=== PATIENT | male | born 1970 | race Caucasian/White ===

== ENCOUNTER 2021-02-06 12:37 | Inpatient (IN) | payer BC ==
[~2021-02-06] VITALS: Ht 180.3 cm; Wt 162.8 kg
[~2021-02-06 12:37] MED LIST: ASPIRIN 325MG325 MG PO; DILTIAZEM 24HR240 M1 PO; GLUCOPHAGE 500500 MG PO; HUMALOG 10100 UNITS/ SC; LANTUS INS100 UTS/M1 SC; LEVAQUIN750 MG PO; LISINOPRIL10 MG PO; PULMICORT FLEX90 MCG INH; VENTOLIN HFA 66.7 GM INH
[2021-02-06 13:37] LABS: HEMOGLOBIN 19.6 gm/dl (14.0-17.5); RED BLOOD COUNT 6.68 M/UL (4.20-5.50)
[2021-02-06 14:00] LABS: BUN/CREATININE RATIO 22 (0-10)
[2021-02-07 03:51] LABS: RED BLOOD COUNT 6.98 M/UL (4.20-5.50); WHITE BLOOD COUNT 8.8 K/UL (4.5-11.0)
[2021-02-07 03:59] LABS: HEMOGLOBIN 20.2 gm/dl (14.0-17.5)
[2021-02-07 04:21] LABS: BUN/CREATININE RATIO 26 (0-10)
[2021-02-08 02:47] LABS: HEMOGLOBIN 18.8 gm/dl (14.0-17.5); RED BLOOD COUNT 6.75 M/UL (4.20-5.50)
[2021-02-08 02:52] LABS: WHITE BLOOD COUNT 12.9 K/UL (4.5-11.0)
[2021-02-08 03:14] LABS: BUN/CREATININE RATIO 30 (0-10)
[2021-02-08] MEDS ORDERED: PREDNISONE20 MG PO (14:04)
[2021-02-08] MEDS ORDERED: TRELEGY ELLIPT1 EACH INH (14:20)
[2021-02-08] MEDS ORDERED: VENTOLIN HFA 66.7 GM INH (14:41)
[2021-02-08] MEDS ORDERED: HUMALOG 10100 UNITS/ SC (14:41)
[2021-02-08] MEDS ORDERED: LANTUS INS100 UTS/M1 SC (14:41)
[2021-02-08] MEDS ORDERED: GLUCOPHAGE 500500 MG PO (14:41)
[2021-02-08] MEDS ORDERED: LISINOPRIL10 MG PO (14:41)
[2021-02-08] MEDS ORDERED: DILTIAZEM 24HR240 M1 PO (14:41)
[2021-02-08] MEDS ORDERED: ASPIRIN 325MG325 MG PO (14:41)
== END 2021-02-08 15:01 | disposition home or self-care (01) | DRG 189 ==
LOC: ER1 12:37 → CDU 19:30 → PROG CARE 19:30
PROVIDERS: Emergency Medicine; Internal Medicine Infectious Disease; ADMIT Internal Medicine
DX: J96.21 Acute and chronic respiratory failure with hypoxia (principal); J44.1 Chronic obstructive pulmonary disease with (acute) exacerbation; E66.2 Morbid (severe) obesity with alveolar hypoventilation; Z68.43 Body mass index [BMI] 50.0-59.9, adult; J96.22 Acute and chronic respiratory failure with hypercapnia; E11.9 Type 2 diabetes mellitus without complications; Z20.822 Contact with and (suspected) exposure to COVID-19; I10 Essential (primary) hypertension; R91.1 Solitary pulmonary nodule; F17.210 Nicotine dependence, cigarettes, uncomplicated; D69.6 Thrombocytopenia, unspecified; D75.1 Secondary polycythemia; Z82.49 Family history of ischemic heart disease and other diseases of the circulatory system; Z83.3 Family history of diabetes mellitus; Z79.4 Long term (current) use of insulin
CPT/HCPCS: 0241U; 36415; 36600; 71045; 80048; 80053; 81001; 82803; 82962; 83036; 83605; 83690; 83735; 85025; 85610; 85730; 93005; 94640; 94660; 94664; 94760; 96374; 99285; J1650; J2920; Q9967

== ENCOUNTER → 2021-02-13 | Outpatient (CLI) | payer BC ==
[~2021-02-13] MED LIST changes: +PREDNISONE20 MG PO; +TRELEGY ELLIPT1 EACH INH
== END ==
LOC: SLEEP 15:00
DX: G47.33 Obstructive sleep apnea (adult) (pediatric) (principal); G47.36 Sleep related hypoventilation in conditions classified elsewhere
CPT/HCPCS: 95811

== ENCOUNTER → 2021-07-31 | Outpatient (CLI) | payer BC | LOC: HEART 5 09:54 | DX: R06.02 Shortness of breath (principal) | CPT/HCPCS: 94060; 94729 ==

== ENCOUNTER 2021-11-04 19:11 | Inpatient (IN) | payer BC ==
[~2021-11-04] VITALS: Ht 180.3 cm; Wt 153.6 kg
[2021-11-04 20:09] LABS: RED BLOOD COUNT 6.65 M/UL (4.20-5.50); WHITE BLOOD COUNT 8.1 K/UL (4.5-11.0)
[2021-11-04 20:13] LABS: HEMOGLOBIN 21.2 gm/dl (14.0-17.5)
[2021-11-04 22:28] LABS: BUN/CREATININE RATIO 17 (0-10)
[2021-11-05] MEDS ORDERED: LISINOPRIL20 MG PO (00:58)
--- NOTE | 2021-11-05 22:01 | NUR ---
NOTIFIED DR LEACH OF PTS BG ORDERS RECIEVED AND COMPLETED.
--- NOTE | 2021-11-06 05:35 | NUR ---
NOTIFIED DR LEACH THAT PTS BG WAS 532. ORDERS RECIEVED AND COMPLETED.
[2021-11-06 06:17] LABS: RED BLOOD COUNT 6.85 M/UL (4.20-5.50)
[2021-11-06 06:27] LABS: HEMOGLOBIN 21.8 gm/dl (14.0-17.5); WHITE BLOOD COUNT 4.6 K/UL (4.5-11.0)
[2021-11-06 06:44] LABS: BUN/CREATININE RATIO 36 (0-10)
--- NOTE | 2021-11-06 17:41 | NUR ---
CONSULT CALLED TO DR PAGAN
--- NOTE | 2021-11-07 03:16 | NUR ---
PT BECOMING INCREASINGLY MORE CONFUSED AND RESTLESS. CONTINUES TO PULL OFF HIS BIPAP MASK AND OXYGEN DESPITE BEING EDUCATED ABOUT HIS LABS AND NEED FOR IT. 02 SAT DROPS TO LOW 70'S. HE DOES SEEM CONFUSED ABOUT WHERE HE IS. NOTIFIED DR RBEOLLEDO AND ORDERS RECIEVED AND PLACED.
--- NOTE | 2021-11-07 10:00 | NUR ---
REPORT CALLED TO KIARA BENNETT IN ICU, PT TRANSFERRED TO RM [id number]
[2021-11-08 05:59] LABS: RED BLOOD COUNT 6.85 M/UL (4.20-5.50)
[2021-11-08 06:05] LABS: WHITE BLOOD COUNT 7.1 K/UL (4.5-11.0)
[2021-11-08 06:06] LABS: HEMOGLOBIN 21.3 gm/dl (14.0-17.5)
[2021-11-08 08:29] LABS: BUN/CREATININE RATIO 56 (0-10)
[2021-11-09 05:56] LABS: HEMOGLOBIN 19.9 gm/dl (14.0-17.5); RED BLOOD COUNT 6.77 M/UL (4.20-5.50); WHITE BLOOD COUNT 7.8 K/UL (4.5-11.0)
[2021-11-09 06:49] LABS: BUN/CREATININE RATIO 46 (0-10)
[2021-11-10 02:58] LABS: WHITE BLOOD COUNT 8.5 K/UL (4.5-11.0)
[2021-11-10 02:59] LABS: RED BLOOD COUNT 7.07 M/UL (4.20-5.50)
[2021-11-10 03:00] LABS: HEMOGLOBIN 20.9 gm/dl (14.0-17.5)
[2021-11-10 03:18] LABS: BUN/CREATININE RATIO 37 (0-10)
[2021-11-10] MEDS ORDERED: BROVANA15 MCG/2 M NEB (15:21)
[2021-11-10] MEDS ORDERED: NYSTATIN60 GM TOP (15:21)
[2021-11-10] MEDS ORDERED: PREDNISONE 10 M10 MG GT (15:21)
[2021-11-10] MEDS ORDERED: IPRAT-ALBUT 0.5-3 ML NEB (15:21)
[2021-11-10] MEDS ORDERED: LOPRESSOR 50 MG50 MG PO (15:21)
[2021-11-10] MEDS ORDERED: ALBUTEROL2.5 MG/3 M NEB (15:21)
== END 2021-11-10 16:33 | disposition home or self-care (01) | DRG 291 ==
LOC: ER1 19:11 → CCU 22:29 → CDU 22:29 → PROG CARE 22:29 → CCU 11-07 10:09 → PROG CARE 11-09 14:48
PROVIDERS: Internal Medicine; Physician Assistant; ADMIT Family Medicine
PROC: B24BZZZ Ultrasonography of Heart with Aorta (ICD-10-PCS; 2021-11-05)
PROC: 5A09457 Assistance with Respiratory Ventilation, 24-96 Consecutive Hours, Continuous Positive Airway Pressure (ICD-10-PCS; 2021-11-05)
PROC: 3E033XZ Introduction of Vasopressor into Peripheral Vein, Percutaneous Approach (ICD-10-PCS; 2021-11-07)
PROC: 5A0945A Assistance with Respiratory Ventilation, 24-96 Consecutive Hours, High Flow/Velocity Cannula (ICD-10-PCS; principal; 2021-11-08)
DX: I11.0 Hypertensive heart disease with heart failure (principal); J96.21 Acute and chronic respiratory failure with hypoxia; J96.22 Acute and chronic respiratory failure with hypercapnia; R57.8 Other shock; E66.2 Morbid (severe) obesity with alveolar hypoventilation; N17.9 Acute kidney failure, unspecified; J44.1 Chronic obstructive pulmonary disease with (acute) exacerbation; Z68.42 Body mass index [BMI] 45.0-49.9, adult; Z20.822 Contact with and (suspected) exposure to COVID-19; F17.210 Nicotine dependence, cigarettes, uncomplicated; E11.9 Type 2 diabetes mellitus without complications; D69.6 Thrombocytopenia, unspecified; E87.6 Hypokalemia; G47.33 Obstructive sleep apnea (adult) (pediatric); I50.9 Heart failure, unspecified; T42.75XA Adverse effect of unspecified antiepileptic and sedative-hypnotic drugs, initial encounter; D75.1 Secondary polycythemia; Z99.81 Dependence on supplemental oxygen; Z79.84 Long term (current) use of oral hypoglycemic drugs; Z82.49 Family history of ischemic heart disease and other diseases of the circulatory system; Z83.3 Family history of diabetes mellitus; Z79.82 Long term (current) use of aspirin; Z79.4 Long term (current) use of insulin
CPT/HCPCS: ECHO; 0240U; 36415; 36600; 71045; 80048; 80053; 82550; 82553; 82607; 82668; 82746; 82803; 82962; 83605; 83735; 83874; 83880; 84100; 84132; 84484; 85025; 85610; 85730; 87040; 93005; 93306; 94640; 94660; 94664; 94760; 96374; 99285; J1650; J1940; J2405; J2920; J2930; J7030

== ENCOUNTER 2021-11-18 14:33 | Emergency (ER) | payer BC ==
[~2021-11-18 14:33] MED LIST changes: +ALBUTEROL2.5 MG/3 M NEB; +BROVANA15 MCG/2 M NEB; +IPRAT-ALBUT 0.5-3 ML NEB; +LISINOPRIL20 MG PO; +LOPRESSOR 50 MG50 MG PO; +NYSTATIN60 GM TOP; +PREDNISONE 10 M10 MG GT
[2021-11-18 15:09] LABS: RED BLOOD COUNT 6.71 M/UL (4.20-5.50); WHITE BLOOD COUNT 15.5 K/UL (4.5-11.0)
[2021-11-18 15:12] LABS: HEMOGLOBIN 21.1 gm/dl (14.0-17.5)
[2021-11-18 15:30] LABS: BUN/CREATININE RATIO 41 (0-10)
[2021-11-18] MEDS ORDERED: COLACE100 MG PO (20:29)
== END 2021-11-18 21:45 | disposition home or self-care (01) ==
LOC: ER1 14:33
PROVIDERS: Student in an Organized Health Care Education/Training Program
DX: K59.00 Constipation, unspecified (principal); R10.9 Unspecified abdominal pain; E10.9 Type 1 diabetes mellitus without complications; J44.9 Chronic obstructive pulmonary disease, unspecified; I50.9 Heart failure, unspecified; D45 Polycythemia vera
CPT/HCPCS: 71045; 80053; 82150; 83605; 83690; 84484; 85025; 93005; 96374; 99284; J2405

== ENCOUNTER → 2021-12-21 | Outpatient (CLI) | payer BC ==
[~2021-12-21] MED LIST changes: +COLACE100 MG PO
== END ==
LOC: KOH-I 13:27
DX: R91.1 Solitary pulmonary nodule (principal)
CPT/HCPCS: 71250